=== PATIENT | male | born 1990 | race Caucasian/White ===

== ENCOUNTER 2024-08-05 09:54 | Inpatient (IN) | payer SELFPAY ==
[2024-08-05 11:22] LABS: BASOPHILS ABSOLUTE AUTO 0.05 K/uL (0.00-0.20); BASOPHILS PERCENT AUTO 0.4 % (0.0-1.0); EOSINOPHILS ABSOLUTE AUTO 0.08 K/uL (0.00-0.45); EOSINOPHILS PERCENT AUTO 0.6 % (0.0-6.0); HEMATOCRIT 39.9 % (42.0-52.0); HEMOGLOBIN 13.4 g/dL (14.0-18.0); IMMATURE GRAN ABSOLUTE AUTO 0.05 K/uL (0.00-0.05); IMMATURE GRAN PERCENT AUTO 0.4 % (0.0-0.4); LYMPHOCYTES ABSOLUTE AUTO 0.84 K/uL (1.00-4.80); LYMPHOCYTES PERCENT AUTO 6.5 % (24.0-44.0); MEAN CORPUSCULAR HEMOGLOBIN 29.1 pg (28.0-32.0); MEAN CORPUSCULAR HGB CONC 33.6 g/dL (32.0-36.0); MEAN CORPUSCULAR VOLUME 86.6 fL (83.0-99.0); MEAN PLATELET VOLUME 8.5 fL (9.4-12.4); MONOCYTES ABSOLUTE AUTO 1.14 K/uL (0.00-0.80); MONOCYTES PERCENT AUTO 8.9 % (0.0-8.0); NEUTROPHILS PERCENT AUTO 83.2 % (41.0-71.0); PLATELET COUNT,PLT 384 K/uL (150-400); RED BLOOD CELL COUNT 4.61 M/uL (4.52-5.90); WHITE BLOOD CELL COUNT,WBC 12.86 K/uL (3.9-11.3)
[2024-08-05] MEDS: Ketorolac 30 MG/ML SDV IVPUSH ONE (11:40)
[2024-08-05] MEDS: Sodium Chloride 0.9% 2,000 ML IV ONE (11:41)
[2024-08-05] MEDS: Acetaminophen 500 MG Tab PO ONE (11:41)
[2024-08-05 11:42] LABS: A/G RATIO 0.8 (0.9-1.6); ALBUMIN 3.7 g/dL (3.4-5.0); BILIRUBIN TOTAL 0.6 mg/dL (0.2-1.0); CARBON DIOXIDE,CO2 26.5 mmol/L (21.0-32.0); CREATININE 1.1 mg/dL (0.8-1.3); EST CRCL DRUG DOSING (CG) 107.95 mL/min; POTASSIUM,K 3.7 mmol/L (3.5-5.1); PROTEIN TOTAL,TP 8.3 g/dL (6.4-8.2)
[2024-08-05 11:46] LABS: LACTIC ACID 1.3 mmol/L (0.4-2.0)
[2024-08-05 12:15] LABS: CORONAVIRUS COVID-19 NAA NEGATIVE (NEGATIVE); INFLUENZA A NAA NEGATIVE (NEGATIVE); INFLUENZA B NAA NEGATIVE (NEGATIVE); RESPIRATORY SYNCYTIAL VIR NAA NEGATIVE (NEGATIVE)
[2024-08-05] MEDS: Iopamidol 755 MG/ML 500 ML Multipack Bottle IVPUSH STA (14:39)
[2024-08-05] MEDS: Azithromycin 500 MG in Sodium Chloride 0.9% 250 ML IV ONE (15:17)
[2024-08-05] MEDS: cefTRIAXone 1 GM in Sodium Chloride 0.9% 50 ML IV ONE (15:17)
[2024-08-05] MEDS ORDERED: Ondansetron 4 MG/2 ML SDV IVPUSH PRN (17:34)
[2024-08-05] MEDS ORDERED: Acetaminophen 650 MG Supp RECTAL PRN (17:34)
[2024-08-05 18:02] LABS: HEMOGLOBIN A1C 5.9 %
[2024-08-05] MEDS: Sodium Chloride 0.9% 1,000 ML IV SCH (19:18)
[2024-08-05] MEDS: Albuterol/Ipratropium 3.0-0.5 MG/3 ML Neb Soln NEB SCH (19:42)
[2024-08-05] MEDS: Enoxaparin 40 MG/0.4 ML Syringe SUBCUT SCH (21:38)
[2024-08-05] MEDS: guaiFENesin 600 MG Tab.ER PO SCH (21:38)
[2024-08-05] MEDS: Acetaminophen 325 MG Tab PO PRN (23:22)
[2024-08-05] MEDS: Melatonin 3 MG Tab PO PRN (23:23)
[2024-08-06] MEDS: Benzocaine/Cetylpyridinium/Menthol Lozenge MUCMEM PRN (02:03)
[2024-08-06] MEDS: Polyethylene Glycol 3350 Powder 17 GM Packet PO PRN (05:15)
[2024-08-06 06:20] LABS: BASOPHILS ABSOLUTE AUTO 0.06 K/uL (0.00-0.20); BASOPHILS PERCENT AUTO 0.6 % (0.0-1.0); EOSINOPHILS ABSOLUTE AUTO 0.19 K/uL (0.00-0.45); EOSINOPHILS PERCENT AUTO 1.9 % (0.0-6.0); HEMATOCRIT 36.1 % (42.0-52.0); HEMOGLOBIN 12.2 g/dL (14.0-18.0); IMMATURE GRAN ABSOLUTE AUTO 0.07 K/uL (0.00-0.05); IMMATURE GRAN PERCENT AUTO 0.7 % (0.0-0.4); LYMPHOCYTES ABSOLUTE AUTO 1.07 K/uL (1.00-4.80); LYMPHOCYTES PERCENT AUTO 10.8 % (24.0-44.0); MEAN CORPUSCULAR HEMOGLOBIN 29.5 pg (28.0-32.0); MEAN CORPUSCULAR HGB CONC 33.8 g/dL (32.0-36.0); MEAN CORPUSCULAR VOLUME 87.4 fL (83.0-99.0); MEAN PLATELET VOLUME 8.3 fL (9.4-12.4); MONOCYTES ABSOLUTE AUTO 0.88 K/uL (0.00-0.80); MONOCYTES PERCENT AUTO 8.9 % (0.0-8.0); NEUTROPHILS ABSOLUTE AUTO 7.64 K/uL (1.80-7.70); NEUTROPHILS PERCENT AUTO 77.1 % (41.0-71.0); PLATELET COUNT,PLT 368 K/uL (150-400); RED BLOOD CELL COUNT 4.13 M/uL (4.52-5.90); WHITE BLOOD CELL COUNT,WBC 9.91 K/uL (3.9-11.3)
[2024-08-06 06:38] LABS: CALCIUM 8.6 mg/dL (8.5-10.1); CARBON DIOXIDE,CO2 24.7 mmol/L (21.0-32.0); EST CRCL DRUG DOSING (CG) 118.74 mL/min; MAGNESIUM 2.5 mg/dL (1.8-2.4); POTASSIUM,K 3.7 mmol/L (3.5-5.1)
[2024-08-06] MEDS: cefTRIAXone 1 GM in Sodium Chloride 0.9% 50 ML IV SCH (09:48)
[2024-08-06] MEDS: Azithromycin 500 MG in Sodium Chloride 0.9% 250 ML IV SCH (10:52)
[2024-08-07 06:26] LABS: HEMATOCRIT 32.3 % (42.0-52.0); MEAN CORPUSCULAR HEMOGLOBIN 30.6 pg (28.0-32.0); MEAN CORPUSCULAR HGB CONC 34.1 g/dL (32.0-36.0); MEAN CORPUSCULAR VOLUME 89.7 fL (83.0-99.0); MEAN PLATELET VOLUME 8.4 fL (9.4-12.4); PLATELET COUNT,PLT 383 K/uL (150-400); WHITE BLOOD CELL COUNT,WBC 6.55 K/uL (3.9-11.3)
[2024-08-07 06:39] LABS: A/G RATIO 0.8 (0.9-1.6); ALBUMIN 2.9 g/dL (3.4-5.0); BILIRUBIN TOTAL 0.3 mg/dL (0.2-1.0); CALCIUM 8.6 mg/dL (8.5-10.1); CREATININE 0.9 mg/dL (0.8-1.3); EST CRCL DRUG DOSING (CG) 131.93 mL/min; MAGNESIUM 2.4 mg/dL (1.8-2.4); POTASSIUM,K 3.8 mmol/L (3.5-5.1); PROTEIN TOTAL,TP 6.7 g/dL (6.4-8.2)
[2024-08-07 07:00] LABS: BAND PERCENT MAN 3 %; BASOPHILS ABSOLUTE MAN 0.07 K/uL (0.00-0.20); BASOPHILS PERCENT MAN 1 % (0-1); EOSINOPHILS ABSOLUTE MAN 0.26 K/uL (0.00-0.45); EOSINOPHILS PERCENT MAN 4 % (0-6); LYMPHOCYTES ABSOLUTE MAN 1.57 K/uL (1.00-4.80); LYMPHOCYTES PERCENT MAN 24 % (24-44); METAMYELOCYTE ABSOLUTE MAN 0.07; METAMYELOCYTE PERCENT MAN 1 %; MONOCYTES ABSOLUTE MAN 0.72 K/uL (0.00-0.80); MONOCYTES PERCENT MAN 11 % (0-8); MYELOCYTE ABSOLUTE MAN 0.07; MYELOCYTE PERCENT MAN 1 %; SEG NEUTROPHILS PERCENT MAN 55 % (41-71)
[2024-08-07 10:07] LABS: BORDETELLA PARAPERT IS1001 Not Detected (Not Detected)
== END 2024-08-07 13:35 | disposition home or self-care (01) | DRG 195 ==
LOC: MW.ED 09:54 → MW.MS 17:36
PROVIDERS: ADMIT Family Medicine; ATTEND Family Medicine
DX: J18.9 Pneumonia, unspecified organism (principal); Z79.899 Other long term (current) drug therapy; Z79.2 Long term (current) use of antibiotics; Z90.49 Acquired absence of other specified parts of digestive tract; Z98.890 Other specified postprocedural states
CPT/HCPCS: 0241U; 36415; 71046; 71046-26; 71275; 71275-26; 80048; 80053; 80061; 83036; 83605; 83735; 85025; 85379; 87040; 87428-QW; 87486; 87581; 87633; 87651-QW; 87899; 94640; 94667; 94668; 99284; A9270-GY; J0456; J0696; J1650; J1885; J3490; J7030; J7050; J7620-GY; Q9967